=== PATIENT | male | born 1970 | race Caucasian/White ===

== ENCOUNTER 2021-09-11 10:40 | Emergency (ER) | payer MEDICAID ==
[~2021-09-11] VITALS: Ht 167.6 cm; Wt 59.0 kg
[2021-09-11] MEDS ORDERED: LISINOPRIL 5MG TABLET PO ONE (11:00)
[2021-09-11 12:13] VITALS: BP 151/92
== END 2021-09-11 12:15 | disposition home or self-care (01) ==
LOC: ER 10:40
DX: U07.1 COVID-19 (principal); I10 Essential (primary) hypertension; B20 Human immunodeficiency virus [HIV] disease; Z91.018 Allergy to other foods
CPT/HCPCS: 87426; 99283